=== PATIENT | male | born 1990 | race Caucasian/White ===

== ENCOUNTER 2017-02-04 09:06 | Emergency (ER) | payer OTHER ==
[~2017-02-04] VITALS: Ht 172.7 cm; Wt 100.0 kg
[2017-02-04 09:08] VITALS: Ht 172.7 cm; Wt 100.0 kg
[2017-02-04] MEDS ORDERED: ONDANSETRON (ODT) 4 MG TAB ODT STA (09:38)
[2017-02-04] MEDS: morphine 4 MG/ML VIAL IM STA ×2 (09:45→09:48)
--- NOTE | 2017-02-04 10:23 | RADRPT ---
PROCEDURE: XR Foot 3 Views. CLINICAL INDICATION: Right foot pain>. TECHNIQUE: AP, oblique and lateral views of the right foot were obtained. The images were reviewe d on a PACS workstation. COMPARISON: None. FINDINGS: The osseous structures are intact. No destructive bony lesions are identified. Interosseous spaces are normal. Small Achilles insertion heel spur is seen. Soft tissues surrounding the foot appear un remarkable. IMPRESSION: Small Achilles insertion heel spur. If further characterization is needed CT or MRI could be helpful. If there is high clinical suspicion for traumatic injury, further evaluation with CT should be consi dered. RPTAT: AA .Matthew Dee MD, Date Time Electronically viewed and signed by .Matthew Dee MD, MD on 02/04/2017 10:22 .P/
[2017-02-04] MEDS ORDERED: HYDROCODONE/APAP (5/325) TAB PO ONE (10:30)
--- NOTE | 2017-02-04 11:27 | RADRPT ---
PROCEDURE: MRI OF THE RIGHT ANKLE CLINICAL INDICATION: Achilles tendon rupture. TECHNIQUE: Sagittal and axial T1, sagittal, axial, and coronal proton density MRI imaging of the an kle. COMPARISON: 02/04/2017 right foot x-ray FINDINGS: Tendons: There is thickening and diffuse signal hyperintensity within the Achilles tendon compatible with high-grade partial tear extending the length of the tendon and involving the mild tendinous ju nction. Trace peritendinous edema. Marked subcutaneous soft tissue edema along the posterior, medial , and lateral ankle joint and foot most pronounced medially. Mild tenosynovitis of the flexor hallucis longus tendon Osseous structures: No evidence for osseous stress response, fracture or avascular necrosis. 5 mm chronic appearing osteochondral defect in the posterior medial talar dome without surrounding marrow edema or fragmentation. There is no evidence for coalition. Ligaments: Intact anterior talofibular ligament, calcaneofibular ligament and deltoid ligament. No acute change and no complete disruption identified. Plantar fascia: The plantar fascia is intact. No evidence for fasciosis or tear. The calcaneus ap pears normal without osteitis. The soft tissues around the plantar fascia appear normal without nichole ma. There is no evidence for denervation. Other findings: The sinus tarsi appears normal. No mass in the tarsal tunnel identified. IMPRESSION: 1. High-grade partial intrasubstance tear and thickening of the Achilles tendon without rupture. Mil d peritendinous edema. 2. No other tendon or ligament rupture. 3. No fracture or bone contusion. 5 mm medial talar dome chronic appearing osteochondral defect. 4. Moderate subcutaneous soft tissue edema along the posterior, lateral and medial aspects of the an kle and foot. RPTAT: HH Physician Jasmyne Date Time Electronically viewed and signed by Physician Jasmyne on 02/04/2017 11:27 FANY/
[2017-02-04] MEDS ORDERED: IBUP-1542 PO (11:47)
[2017-02-04] MEDS ORDERED: HYDR-906 PO (11:47)
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
== END 2017-02-04 12:19 | disposition home or self-care (01) ==
LOC: FTE 09:06
DX: S86.021A Laceration of right Achilles tendon, initial encounter (principal); W22.8XXA Striking against or struck by other objects, initial encounter; Y92.9 Unspecified place or not applicable
CPT/HCPCS: 29515; 73630; 73721; J2270; Z7502; Z7610